=== PATIENT | female | born 1975 | race Caucasian/White ===

== ENCOUNTER → 2023-01-04 14:49 | Outpatient (CLI) | payer MEDICARE, SELFPAY ==
[2023-01-05 13:31] LABS: Hemoglobin A1C 4.8 % (4.0-6.0)
== END ==
LOC: LAB.DROPOF 01-09 14:46 → LAB 01-09 14:50
PROVIDERS: PCP Physician Assistant; Visit Provider Physician Assistant
DX: R73.09 Other abnormal glucose (principal)
CPT/HCPCS: 83036

== ENCOUNTER → 2023-01-04 23:52 | Outpatient (CLI) | payer MEDICARE, SELFPAY ==
[2023-01-04 21:47] LABS: Basophils # 0.1 K/mm3 (0-0.2); Basophils % 0.9 % (0.1-2.0); Eosinophils # 0.1 K/mm3 (0.0-0.4); Eosinophils % 0.8 % (0.1-12.0); Hematocrit 40.6 % (37.0-47.0); Hemoglobin 13.6 g/dL (12.2-16.2); Lymphocytes # 1.8 K/mm3 (0.7-4.5); Lymphocytes % 26.6 % (10-50); Mean Corpuscular HGB Conc 33.5 g/dL (31.8-35.4); Mean Corpuscular Hemoglobin 30.5 pg (27.0-31.2); Mean Platelet Volume 8.2 fl (7.4-10.4); Monocytes # 0.3 K/mm3 (0.1-1.0); Monocytes % 4.5 % (1.7-9.3); Neutrophils # 4.5 K/mm3 (1.8-7.8); Neutrophils % 67.3 % (37.0-80.0); Platelet Count 214 K/mm3 (142-424); Red Blood Count 4.46 M/mm3 (4.20-5.40); Red Cell Distribution Width 13.3 % (11.5-17.5); White Blood Count 6.7 K/mm3 (4.8-10.8)
[2023-01-04 22:03] LABS: Alanine Aminotransferase 15 U/L (12-78); Albumin Level 4.4 g/dl (3.5-5.0); Albumin/Globulin Ratio 1.3 (1.1-1.8); Alkaline Phosphatase 75 U/L (38-126); Anion Gap 13.1 mEq/L (5-15); Aspartate Amino Transferase 31 U/L (14-36); Bilirubin,Total 0.3 mg/dl (0.2-1.3); Blood Urea Nitrogen 18 mg/dl (7-17); Calcium 9.3 mg/dl (8.4-10.2); Carbon Dioxide 35 mmol/L (22.0-30.0); Chloride 96 mmol/L (98-107); Chol/HDL Ratio 3.3 (1-3.5); Cholesterol 184 mg/dl (140-200); Estimated Glomerular Filt Rate 78 ml/min (>60); GFR (African American) 94 ML/MIN (>60); Globulin 3.3 g/dL (1.3-3.2); Glucose 122 mg/dl (74-100); HDL Cholesterol 56 mg/dl (40-60); Potassium 4.1 mmoL/L (3.5-5.1); Sodium 140 mmol/L (136-145); Total Protein,Serum 7.7 g/dl (6.3-8.2); Triglycerides 84 mg/dl (30-150); VLDL Cholesterol 17 mg/dL (0-40)
[2023-01-04 22:13] LABS: Direct LDL Cholesterol 91.28 mg/dL (100-129)
[2023-01-04 22:30] LABS: Thyroid Stimulating Hormone 2.14 uIU/mL (0.465-4.68)
== END ==
PROVIDERS: PCP Physician Assistant; Visit Provider Physician Assistant
DX: B19.20 Unspecified viral hepatitis C without hepatic coma (principal); I10 Essential (primary) hypertension; Z00.00 Encounter for general adult medical examination without abnormal findings; R73.09 Other abnormal glucose; Z79.899 Other long term (current) drug therapy
CPT/HCPCS: 80053; 80061; 83036; 84443; 85025; 87522

== ENCOUNTER 2023-08-23 11:53 | Emergency (ER) | payer MEDICARE, MEDICAID, SELFPAY ==
[2023-08-23 12:15] VITALS: BP 114/78; PULSE 85; RESP 20; TEMP 36.9; O2SAT 100; BMI 22.8
--- NOTE | 2023-08-23 13:02 | ED_ITS ---
Discharge Plan Disposition Patient Disposition: Home, Self-Care Condition: Good Prescriptions Prescriptions: New loratadine 10 mg tablet 10 mg PO DAILY Qty: 30 0RF No Action buprenorphine-naloxone 8-2 mg tablet, sublingual 1 tab sublingual DAILY Patient Comments: DISSOLVE 1 & 1/2 TABLET UNDER THE TONGUE ONCE DAILY tizanidine 4 mg tablet 4 mg PO Q8H PRN (Reason: muscle spasticity) Qty: 90 2RF furosemide 80 mg tablet See Rx Instructions .ROUTE .COMPLEX Qty: 90 0RF Dose Instruction: TAKE ONE TABLET BY MOUTH EVERY DAY Rx Instructions: TAKE ONE TABLET BY MOUTH EVERY DAY amitriptyline 100 mg tablet See Rx Instructions .ROUTE .COMPLEX Qty: 90 0RF Dose Instruction: TAKE ONE TABLET BY MOUTH EVERY DAY AT BEDTIME Rx Instructions: TAKE ONE TABLET BY MOUTH EVERY DAY AT BEDTIME Referrals Follow up/Referrals: Khalida Blank PA [Primary Care Provider] - See instructions Activity Restrictions/Add. Instructions Additional Instructions/Restrictions: Viral illnesses usually will resolve within 10 days. Increase fluids and rest. Take medication as prescribed. If symptoms persist or worsen, follow up with PCP. Clinical Impressions Clinical Impression: Viral illness Stand Alone Forms Stand Alone Forms: Work/School Release Instructions Patient Instructions: DI for Viral Upper Respiratory Infection -- Adult Discharge ED Provider: Elba Patino [facility] General Stated complaint: body aches, fever Mode of Arrival: Ambulatory Source of Information: Patient Limitations: No Limitations Time Seen by Provider: 08/23/23 12:45 Description of Symptoms (Recalled from Triage Doc. by RN): PATIENT C/O HEADACHE, EAR ACHE, BODY ACHES, FEVER, AND SORE THROAT X 4 DAYS HEENT Symptoms (Recalled from RN notes): Yes Resp Symptoms (Recalled from RN notes): No Skin Symptoms (Recalled from RN notes): No MS Symptoms (Recalled from RN notes): No Functional Status (Recalled from RN notes): WNL History of Present Illness Provider Complaint: Pt reports that she has not felt well for the past 4 days. She reports fever, chills, body aches, ear aches, and sore throat. She denies taking anything for her symptoms. Related Data Home Medications Medication Instructions Recorded Confirmed buprenorphine 8 mg-naloxone 2 mg 1 tab sublingual DAILY 01/04/23 08/23/23 sublingual tablet Previous Rx's Medication Instructions Recorded tizanidine 4 mg tablet 4 mg PO Q8H PRN muscle spasticity 04/10/23 #90 tabs amitriptyline 100 mg tablet See Rx Instructions .Route 07/12/23 .COMPLEX #90 tabs furosemide 80 mg tablet See Rx Instructions .Route 07/12/23 .COMPLEX #90 tabs loratadine 10 mg tablet 10 mg PO DAILY #30 tabs 08/23/23 Allergies Allergy/AdvReac Type Severity Reaction Status Date / Time NSAIDS (Non-Steroidal Allergy Severe Vomiting Verified 06/14/23 11:12 Anti-Inflamma Sulfa (Sulfonamide Allergy Intermediate Vomiting Verified 06/14/23 11:12 Antibiotics) Worker's Comp Is this a Worker's Comp case?: No [facility] Disclaimer: The information contained in this section may have been updated after the patient was seen, as this information can be updated by other users. 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 Bradycardia Mitral valvular prolapse Epilepsy Scoliosis Surgical History (Updated 08/23/23 @ 12:28 by Mayra Rodriguez RN) History of cardiac catheterization Hx of spinal fusion Family History Mother Alcoholism FHx: mental illness Heart attack Substance abuse Sister Bleeding disorder Kidney disease Substance abuse Thyroid disorder Grandmother Cancer Father Diabetes Social History Smoking Status: Current every day smoker tobacco type: cigarettes packs per day: 1 alcohol intake: never substance use type: former substance user, opiates and methamphetamine current occupational status: disabled Travel in the last 8 weeks: None ROS Obtained: Yes All systems reviewed & no additional complaints except as documented Constitutional Constitutional: Reports system reviewed and no additional complaints, except as documented, Reports body ache, Reports chills, Reports fever(s), Reports headache(s) and Reports malaise Eyes Eyes: Reports system reviewed and no additional complaints, except as documented ENT Ears, Nose, Mouth, and Throat: Reports system reviewed and no additional complaints, except as documented, Reports otalgia, Reports headache(s) and Reports post nasal drip Cardiovascular Cardiovascular: Reports system reviewed and no additional complaints, except as documented Respiratory Respiratory: Reports system reviewed and no additional complaints, except as documented Gastrointestinal Gastrointestingal: Reports system reviewed and no additional complaints, except as documented Genitourinary Female Genitourinary: Reports system reviewed and no additional complaints, except as documented Musculoskeletal Musculoskeletal: Reports system reviewed and no additional complaints, except as documented Integumentary/Breasts Skin/Breast: Reports system reviewed and no additional complaints, except as documented Neurologic Neurologic: Reports system reviewed and no additional complaints, except as documented and Reports headache(s) Endocrine Endocrine: Reports system reviewed and no additional complaints, except as documented Hematologic/Lymphatic Henatologic/Lymphatic: Reports system reviewed and no additional complaints, except as documented Allergic/Immunologic Allergic/Immunologic: Reports system reviewed and no additional complaints, except as documented Physical Exam General General appearance: alert Comment: ill appearing Head Head exam: atraumatic and normocephalic Eye Eye exam: Present normal appearance ENT ENT exam: Present mucous membranes moist Expanded ENT Exam External ear exam: Present normal external inspection TM/Canal exam: Bilateral TM: effusion (clear bubbles) and loss of landmarks (scarring present) Nasal speculum exam: Bilateral: normal Mouth exam: Present normal external inspection Teeth exam: Present normal inspection Throat exam: Present tonsillar erythema Neck Neck exam: Present normal inspection; Absent lymphadenopathy Chest Chest inspection: Present normal inspection and symmetric chest wall rise Respiratory Respiratory exam: Present normal lung sounds bilaterally Cardiovascular Cardiovascular exam: Present regular rate, normal rhythm and normal heart sounds Abdominal Exam Abdominal exam: Present soft, tenderness and normal bowel sounds Abdominal tenderness: Present diffuse Extremities Exam Extremities exam: Present normal inspection Back Exam Back exam: Present normal inspection Neurological Exam Neurological exam: Present alert and oriented X3 Psychiatric Psychiatric exam: Present normal affect and normal mood Skin Skin exam: Present warm, dry and intact Lymphatic Lymphatic Findings: no adenopathy Medical Decision Making Keshawn Inquiry Pt receiving controlled substance: No Keshawn was queried for this patient: No Vital Signs: 08/23/23 12:15 Temperature 98.4 F Temperature Source Oral Pulse Rate [Left Brachial] 85 Respiratory Rate 20 Blood Pressure [Left Arm] 114/78 Blood Pressure Mean [Left Arm] 90 Blood Pressure Source [Left Arm] Automatic Cuff Blood Pressure Position [Left Arm] Sitting 02 Sat by Pulse Oximetry 100 Oxygen Delivery Method Room Air Orders (Tests/Meds): ORDERS Category Date Time Status Rapid PCR Covid and Flu A/B Stat Lab 08/23/23 12:50 Ordered
[2023-08-23 13:13] LABS: UTC Strep Screen (Rapid) Negative (Negative)
[2023-08-23 13:14] VITALS: BP 114/78; PULSE 85; RESP 20; TEMP 36.9; O2SAT 100
[2023-08-23 13:26] LABS: Coronavirus 19, PCR Not Detected (NotDetected); Influenza A, PCR Not Detected (NotDetected); Influenza B, PCR Not Detected (NotDetected)
== END 2023-08-23 13:17 | disposition home or self-care (01) ==
PROVIDERS: Emergency Provider Nurse Practitioner Family; PCP Physician Assistant
DX: R50.9 Fever, unspecified (principal); R07.0 Pain in throat; H92.02 Otalgia, left ear; B34.9 Viral infection, unspecified
CPT/HCPCS: 87636; 87880; 99204; 99212; G0463

== ENCOUNTER 2023-11-29 11:12 | Outpatient (CLI) | payer MEDICARE, MEDICAID, SELFPAY ==
[2023-11-29 18:20] LABS: Basophils # 0.1 K/mm3 (0-0.2); Basophils % 0.8 % (0.1-2.0); Eosinophils # 0.1 K/mm3 (0.0-0.4); Eosinophils % 2.2 % (0.1-12.0); Hematocrit 45.3 % (37.0-47.0); Hemoglobin 13.9 g/dL (12.2-16.2); Lymphocytes % 30.1 % (10-50); Mean Corpuscular HGB Conc 30.7 g/dL (31.8-35.4); Mean Corpuscular Hemoglobin 28.3 pg (27.0-31.2); Mean Corpuscular Volume 92.1 fl (81-99); Mean Platelet Volume 7.5 fl (7.4-10.4); Monocytes # 0.4 K/mm3 (0.1-1.0); Monocytes % 5.2 % (1.7-9.3); Neutrophils # 4.1 K/mm3 (1.8-7.8); Neutrophils % 61.7 % (37.0-80.0); Platelet Count 286 K/mm3 (142-424); Red Blood Count 4.92 M/mm3 (4.20-5.40); Red Cell Distribution Width 13.7 % (11.5-17.5); White Blood Count 6.6 K/mm3 (4.8-10.8)
[2023-11-29 18:39] LABS: Alanine Aminotransferase 16 U/L (12-78); Albumin Level 4.5 g/dl (3.5-5.0); Albumin/Globulin Ratio 1.3 (1.1-1.8); Alkaline Phosphatase 78 U/L (38-126); Anion Gap 6.9 mEq/L (5-15); Aspartate Amino Transferase 33 U/L (14-36); Bilirubin,Direct 0.3 mg/dl (0.0-0.4); Bilirubin,Indirect 0.2 mg/dL (0.0-0.9); Bilirubin,Total 0.5 mg/dl (0.2-1.3); Bilirubin,Unconjugated 0.1 mg/dL (0.0-1.1); Blood Urea Nitrogen 12 mg/dl (7-17); Carbon Dioxide 36 mmol/L (22.0-30.0); Chloride 100 mmol/L (98-107); Cholesterol 217 mg/dl (140-200); Estimated Glomerular Filt Rate 77 ml/min (>60); GFR (African American) 93 ML/MIN (>60); Globulin 3.5 g/dL (1.3-3.2); Glucose 79 mg/dl (74-100); HDL Cholesterol 73 mg/dl (40-60); Potassium 3.9 mmoL/L (3.5-5.1); Sodium 139 mmol/L (136-145); Triglycerides 103 mg/dl (30-150); VLDL Cholesterol 21 mg/dL (0-40)
[2023-11-29 18:50] LABS: Direct LDL Cholesterol 106.21 mg/dL (100-129)
[2023-11-29 18:54] LABS: 25-OH Vitamin D, Total 37.2 ng/mL (30-100)
[2023-11-29 19:10] LABS: Thyroid Stimulating Hormone 2.29 uIU/mL (0.465-4.68)
[2024-01-03 15:33] LABS: Antinuclear Antibodies (ANA) NEGATIVE
== END 2023-11-29 23:59 | disposition home or self-care (01) ==
LOC: LAB.DROPOF 11-30 11:12
PROVIDERS: PCP Nurse Practitioner Family; Visit Provider Nurse Practitioner Family
DX: K76.9 Liver disease, unspecified (principal); D64.9 Anemia, unspecified; R06.02 Shortness of breath; N28.9 Disorder of kidney and ureter, unspecified; M41.9 Scoliosis, unspecified; K21.00 Gastro-esophageal reflux disease with esophagitis, without bleeding; Z86.19 Personal history of other infectious and parasitic diseases; Z72.0 Tobacco use; I50.9 Heart failure, unspecified
CPT/HCPCS: 80053; 80061; 80076; 82306; 84436; 84443; 85025; 86038

== ENCOUNTER 2023-12-13 13:00 | Outpatient (CLI) | payer MEDICARE, SELFPAY ==
--- NOTE | 2023-12-13 | CA_ITS ---
APPROVED REPORT EXAM: Comprehensive 2D, Doppler, and color-flow Echocardiogram Transit Planning Director: Yuliana Zambrano RT(R) Ht: 5 ft 0 in Wt: 120lbs BSA: 1.50 BP: 119/75 mmHg Indications: SOA, CHF, hx hep C, hx drug use disorder, smoker 2D Dimensions LVOT 1.83 cm (M/F) 1.5-2.5 LVEF (Estrada's) 51.10 % F: 54 - 74 LV Volume 88.70 mL F: 46 - 106 LV Volume Index 59.1 mL/m2 F: 29 - 61 LA Volume 19.90 mL LA Volume Index 13.27 mL/m2 (M/F) 16-34 EF AP4 51.90 % EF AP2 47.5 % EF BP 51.1 % GL Strain -20.6 % M-Mode Dimensions RVDd 1.89 cm (0.9-2.6) LVDd 5.00 cm (3.5-5.7) LVDs 3.63 cm (3.5-5.7) IVSd 0.67 cm (0.6-1.1) PWd 0.55 cm (0.6-1.1) EF (Teich) 53.00% FS 27.40% EDV (Teich) 118.20 mL ESV (Teich) 55.50 mL LV Diastology E Decel Time 150 (160-240 msec) E/A Ratio 1.7 MED E' 8.6 (>= 7 cm/sec) E'/MED E' Ratio 12.94 (<= 14) LAT E' 15.3 (>= 10 cm/sec) E/LAT E' Ratio 7.27 (<= 14) Mitral Valve MV E Max Sulaiman. 111.0 (40-130 cm/s) MV A Velocity 67.0 (40-130 cm/s) E/A Ratio 1.66 MV Decel. Time 150 (160-240 ms) Left Ventricle The left ventricle is normal size. The left ventricular systolic function is normal. The left ventricular ejection fraction is within the normal range. There is normal left ventricular wall thickness. There is normal LV segmental wall motion. The left ventricular diastolic function is normal. LVEF is 55%. Right Ventricle The right ventricle is normal size. The right ventricular systolic function is normal. Atria The left atrium size is normal. The right atrium size is normal. There is no Doppler evidence of interatrial shunt. Aortic Valve Aortic valve opens well. There is no aortic valvular stenosis. No aortic regurgitation is present. Mitral Valve The mitral valve is normal in structure. No evidence of mitral valve stenosis. Trace mitral regurgitation. Tricuspid Valve The tricuspid valve leaflets are thin and pliable. Trace tricuspid regurgitation. There is insufficient TR jet to estimate RVSP. Pulmonic Valve The pulmonary valve is normal in structure. Trace pulmonic regurgitation. Great Vessels The aortic root is normal in size. The ascending aorta is not well-visualized. IVC is normal in size and collapses >50% with inspiration. Pericardium There is no pericardial effusion. Other Information Study Quality: Adequate Conclusion Normal biventricular systolic function. No significant valvular stenosis or regurgitation. Electronically signed by : Jewell Pink MD 12/18/2023 12:12:15
== END 2023-12-13 23:59 | disposition home or self-care (01) ==
LOC: RT 13:02
PROVIDERS: PCP Nurse Practitioner Family; Visit Provider Nurse Practitioner Family
DX: I34.1 Nonrheumatic mitral (valve) prolapse (principal); R06.02 Shortness of breath; I50.9 Heart failure, unspecified
CPT/HCPCS: 93306

== ENCOUNTER 2024-04-23 15:48 | Outpatient (CLI) | payer MEDICARE, MEDICAID, SELFPAY ==
--- NOTE | 2024-04-23 15:48 | XR_ITS ---
FINAL REPORT TECHNIQUE: Bone mineral density was calculated of the lumbar spine and hip. CLINICAL HISTORY: Screening Dexa Scan COMPARISON: None FINDINGS: Using the right forearm, the bone mineral density of the mid is 0.503 g/cm2, corresponding to T-score of -1.9. Using the left hip, the bone mineral density of the femoral neck is 0.804 g/cm2, corresponding to a T-score of -1.1. Using the right hip, the bone mineral density of the femoral neck is 0.741 g/cm?, corresponding to a T-score of -1.0. NOTE: T-score: Standard deviation compared with peak bone mass of young adult mean. *Following the recommendations of the International Society of Bone densitometry, classification of hip BMD is based on the lower of two T-scores; total hip or femoral neck. IMPRESSION: Diminished bone mineral density of the left hip and right forearm consistent with osteopenia. Borderline bone mineral density of the right hip consistent with borderline osteopenia. Reviewed, Interpreted and Dictated by Ha Welch MD Transcribed by Lizzy Henry Authenticated and [facility]
--- NOTE | 2024-04-23 15:48 | MM_ITS ---
PROCEDURE INFORMATION: Exam: MG Bilateral Screening 3D Mammography Exam date and time: 04/23/2024 3:50 PM Age: 48 years old Clinical indication: Screening examination TECHNIQUE: Imaging protocol: Bilateral Screening tomosynthesis and 2D mammography including computer-aided detection (CAD) when performed. COMPARISON: No relevant prior studies available. FINDINGS: MAMMOGRAPHY: Breast composition: The breasts are heterogeneously dense, which may obscure small masses. Mass: Widespread coarse nodular parenchymal pattern bilaterally possibly on the basis of underlying cystic change Architectural distortion: None. Calcifications: No suspicious calcifications. Asymmetric density: None. Skin thickening: None. Axillary adenopathy: None. IMPRESSION: Widespread bilateral nodular parenchyma possibly on the basis of underlying cystic change. Complete bilateral breast ultrasound is recommended for further evaluation ASSESSMENT: BI-RADS Category 0: Incomplete- Need Additional Imaging Evaluation
== END 2024-04-23 23:59 | disposition home or self-care (01) ==
LOC: RAD 15:48
PROVIDERS: PCP Family Medicine; Visit Provider Obstetrics & Gynecology
DX: M85.88 Other specified disorders of bone density and structure, other site (principal); Z12.31 Encounter for screening mammogram for malignant neoplasm of breast
CPT/HCPCS: 77063; 77067; 77080

== ENCOUNTER 2024-06-12 13:01 | Outpatient (CLI) | payer MEDICARE, MEDICAID, SELFPAY ==
--- NOTE | 2024-06-12 13:00 | MR_ITS ---
FINAL REPORT CLINICAL HISTORY: Neck Pain. BILATERAL SIDED NECK AND ARM PAIN, NUMBNESS AND TINGLNG. HEADACHE. NO INJURY OR TRAUMA. FINDINGS: Multi planar MR imaging was obtained of the cervical spine. There is abnormal decreased signal throughout the cervical discs. The vertebrae are of normal height. There is a cervical scoliosis convex to the right measuring 25 degrees. There is an upper thoracic scoliosis convex to the left measuring 70 degrees. 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 There is spondylolisthesis of C4 on C5. The cervical cord demonstrates normal signal and configuration. C2-C3: There is endplate hypertrophy eccentric to the left. There is moderate left neuroforaminal narrowing. C3-C4: There is a moderate diffuse disc bulge and endplate hypertrophy. There is moderate to high-grade bilateral neuroforaminal narrowing. C4-C5: There is moderate narrowing of the left neuroforamen accentuated by spondylolisthesis. C5-C6: There is no evidence of significant disc bulge or protrusion. There is no significant facet hypertrophy. C6-C7: There is endplate hypertrophy eccentric to the left. There is moderate to high-grade left neuroforaminal narrowing. C7-T1: There is no evidence of significant disc bulge or protrusion. There is no significant facet hypertrophy. IMPRESSION: Degenerative scoliosis. 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 Neuroforaminal narrowing on the left at C2-3, bilaterally at C3-4, and on the left at C4-5 and C6-7. Reviewed, Interpreted and Dictated by Trey Fajardo MD Transcribed by Olivia Day Authenticated and [facility]
== END 2024-06-12 23:59 | disposition home or self-care (01) ==
LOC: RAD 13:02
PROVIDERS: PCP Nurse Practitioner Family; Visit Provider Nurse Practitioner Family
DX: M54.2 Cervicalgia (principal)
CPT/HCPCS: 72141

== ENCOUNTER 2025-01-13 14:30 | Outpatient (CLI) | payer MEDICARE, MEDICAID, SELFPAY ==
[2025-01-13 21:12] LABS: Hematocrit 38.5 % (37.0-47.0); Hemoglobin 11.9 g/dL (12.2-16.2); Immature Granulocytes % 0.3 %; Mean Corpuscular HGB Conc 30.9 g/dL (31.8-35.4); Mean Corpuscular Hemoglobin 27.0 pg (27.0-31.2); Mean Corpuscular Volume 87.3 fl (81-99); Nucleated Red Blood Cells % 0 %; Platelet Count 242 K/mm3 (142-424); Red Blood Count 4.41 M/mm3 (4.20-5.40); Red Cell Distribution Width-SD 40.5 fL; White Blood Count 7.6 K/mm3 (4.8-10.8)
[2025-01-13 21:48] LABS: Albumin Level 4.1 g/dl (3.5-5.0); Chloride 99 mmol/L (98-107); Potassium 4.5 mmoL/L (3.5-5.1); Sodium 142 mmol/L (136-145)
[2025-01-13 21:51] LABS: Alanine Aminotransferase 13 U/L (12-78); Albumin/Globulin Ratio 1.4 (1.1-1.8); Alkaline Phosphatase 76 U/L (38-126); Anion Gap 13.5 mEq/L (5-15); Aspartate Amino Transferase 29 U/L (14-36); Bilirubin,Total 0.3 mg/dl (0.2-1.3); Blood Urea Nitrogen 11 mg/dl (7-17); Calcium 9.5 mg/dl (8.4-10.2); Carbon Dioxide 34 mmol/L (22.0-30.0); Cholesterol 161 mg/dl (140-200); Creatinine,Serum 0.70 mg/dl (0.52-1.04); Estimated Glomerular Filt Rate 90 ml/min (>60); GFR (African American) 109 ML/MIN (>60); Globulin 3.0 g/dL (1.3-3.2); Glucose 82 mg/dl (74-100); Total Protein,Serum 7.1 g/dl (6.3-8.2); Triglycerides 82 mg/dl (30-150)
[2025-01-13 21:52] LABS: HDL Cholesterol 71 mg/dl (40-60)
[2025-01-13 22:21] LABS: Thyroid Stimulating Hormone 2.97 uIU/mL (0.465-4.68)
[2025-01-13 22:38] LABS: Hepatitis C Ab Qual. W/ RFX REACTIVE (Negative)
[2025-01-15 03:39] LABS: Hepatitis B Surface Antigen Negative (Negative)
== END 2025-01-13 23:59 | disposition home or self-care (01) ==
LOC: LAB.DROPOF 01-14 11:00
PROVIDERS: PCP Nurse Practitioner Family; Visit Provider Nurse Practitioner Family
DX: G89.4 Chronic pain syndrome (principal); N19 Unspecified kidney failure; I34.1 Nonrheumatic mitral (valve) prolapse; E78.00 Pure hypercholesterolemia, unspecified; F32.A Depression, unspecified; F41.9 Anxiety disorder, unspecified; Z72.0 Tobacco use
CPT/HCPCS: 80053; 80061; 84443; 85025; 86803; 87340; 87389; 87522